=== PATIENT | female | born 2000 | race Caucasian/White ===

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

== ENCOUNTER 2020-03-07 14:42 | Emergency (ER) | payer OTHER, SELFPAY ==
[2020-03-07 11:22] VITALS: BMI 31.2
[2020-03-07 14:54] VITALS: BP 138/73; PULSE 87; RESP 16; TEMP 37; O2SAT 100; BMI 29.7
--- NOTE | 2020-03-07 15:06 | DI.RAD.S_ITS ---
PROCEDURE: XR CHEST 2V INDICATIONS: shortness of breath TECHNIQUE: 2 views of the chest were acquired. COMPARISON: [facility], , CHEST 2 VIEW, 07/20/2014, 12:05. FINDINGS: Surgical changes and devices: None. Lungs and pleura: Lungs are clear. No pleural effusions or pneumothorax. Mediastinum: Mediastinal contours are normal. Heart size is normal. Bones and chest wall: No suspicious bony abnormalities. Soft tissues appear unremarkable. IMPRESSION: No acute disease Dictated by: Lj Lamas M.D. on 03/07/2020 at 15:23 Approved by: Lj Lamas M.D. on 03/07/2020 at 15:24
[2020-03-07 16:57] VITALS: TEMP 37.2
[2020-03-07] MEDS: diphenhydrAMINE 50 MG/ML VIAL 25 MG IV (19:16)
[2020-03-07] MEDS: SODIUM CHLORIDE 0.9% 1,000 ML 1000 ML IV (19:17)
[2020-03-07] MEDS: KETOROLAC 60 MG/2 ML VIAL 30 MG IV (19:17)
[2020-03-07] MEDS: METOCLOPRAMIDE 10 MG/2 ML INJ IV (19:17)
[2020-03-07 20:32] VITALS: BP 136/79; PULSE 80; RESP 18; O2SAT 98
--- NOTE | 2020-03-07 20:36 | ED_ITS ---
HPI - URI/Sore Throat <MARYANA Desir - Last Filed: 03/07/20 20:52> General Chief Complaint: Upper Respiratory Symptoms Stated Complaint: nauseous, chest pain, body aches, chills, headache Time Seen by Provider: 03/07/20 16:55 Source: patient Mode of arrival: Ambulatory Limitations: no limitations History of Present Illness HPI Narrative: The patient is a 20-year-old female nonsmoker with history of depression and appendectomy who presents with boyfriend for multiple complaints. This includes some body aches, chills, headache with sudden onset today. She also feels like she has sore throat, left earache, nausea with no vomiting at this point time. She has been vomiting in the middle of the night the past few nights so she is tapering off her antidepressant. She felt short of breath, used her inhaler and felt relief. She also complains of sinus congestion, sinus headaches. She has taken Tylenol for her headache, has not taken anything else. She denies any abdominal pain. She denies any dysuria urgency or frequency. Denies possibility of , states she took a negative test last week. The sinus pressure radiates to her jaw and her teeth, hurts worse when she leans forward. She did notice a temperature of 100? yesterday. Related Data Previous Rx's Medication Instructions Recorded albuterol sulfate 90 mcg/actuation 2 puff INHALATION Q4-6H PRN #18 12/20/18 aerosol inhaler gram bupropion HCl 75 mg tablet 75 mg PO BID #90 tab 02/28/20 escitalopram oxalate 20 mg tablet 20 mg PO DAILY #90 tab 02/28/20 escitalopram oxalate 5 mg tablet 5 mg PO DAILY #90 tab 02/28/20 hydroxyzine pamoate 25 mg capsule 25 mg PO BID PRN #60 cap 02/28/20 levonorgestrel-ethinyl estradiol 1 tab PO DAILY #84 tab 02/28/20 0.1 mg-20 mcg tablet Allergies Allergy/AdvReac Type Severity Reaction Status Date / Time amoxicillin Allergy Severe DRESS Verified 02/28/20 14:53 syndrome Penicillins Allergy Severe Rash Verified 02/28/20 14:53 Review of Systems <MARYANA Desir - Last Filed: 03/07/20 20:52> Review of Systems Narrative: GENERAL: See HPI HEENT: See HPI RESPIRATORY: See HPI CARDIOVASCULAR: See HPI GASTROINTESTINAL: See HPI : Denies dysuria, frequency, incontinence, hematuria, urinary retention. MUSCULOSKELETAL: denies weakness, joint pain, or bony pain SKIN: Denies rash, skin lesions, or other NEUROLOGIC: Denies weakness, headache, numbness, change in speech, confusion, seizures, incoordination. PSYCHIATRIC: No concerning psychosocial issues. 12 point review of systems is negative except for those stated above Patient History <MARYANA Desir - Last Filed: 03/07/20 20:52> Medical History Anxiety (Acute 2014) Depression (Acute 2014) DRESS syndrome (Acute 11/2018) Irritable bowel syndrome (Acute) Menses painful (Acute 2017) Oral contraception initial prescription (Acute 02/2020) Social History household members: family Smoking Status: Never smoker alcohol intake: current Smoking Status: Never smoker alcohol intake frequency: 0-2 drinks per day Substance Use Type: does not use Exam <MARYANA Desir - Last Filed: 03/07/20 20:52> Narrative Exam Narrative: GENERAL: This is a well-nourished, well-developed patient, in no acute distress HEAD: Atraumatic. Normocephalic. No temporal or scalp tenderness. EYES: Pupils equal round and reactive. Extraocular motions intact. No scleral icterus. No injection or drainage. ENT: Nose without bleeding, purulent drainage or septal hematoma. Throat without erythema, tonsillar hypertrophy or exudate. Uvula midline. Airway patent. Bilateral TMs pearly taylor. NECK: Trachea midline. No JVD or lymphadenopathy. Supple, nontender, no meningeal signs. CARDIOVASCULAR: Regular rate and rhythm RESPIRATORY: Clear to auscultation. Breath sounds equal bilaterally. No wheezes, rales, or rhonchi. No cough. No increased respiratory effort. No accessory muscle use. GASTROINTESTINAL: Abdomen soft, non-tender, nondistended. No hepato- splenomegaly, or palpable masses. No guarding. Normoactive bowel sounds all 4 quadrants. EXTREMITIES: No clubbing, cyanosis, or edema. No joint tenderness, effusion, or edema noted. BACK: Nontender without deformity or crepitance. No flank tenderness. NEURO: AOx3. SKIN: No rash or erythema on visible skin Initial Vital Signs Initial Vital Signs: Vital Signs Temperature 98.6 F 03/07/20 14:54 Pulse Rate 87 03/07/20 14:54 Respiratory Rate 16 03/07/20 14:54 Blood Pressure 138/73 03/07/20 14:54 Pulse Oximetry 100 03/07/20 14:54 <Vinayak Gautam DO - Last Filed: 03/08/20 01:47> Initial Vital Signs Initial Vital Signs: Vital Signs Temperature 98.6 F 03/07/20 14:54 Pulse Rate 87 03/07/20 14:54 Respiratory Rate 16 03/07/20 14:54 Blood Pressure 138/73 03/07/20 14:54 Pulse Oximetry 100 03/07/20 14:54 Scores <MARYANA Desir - Last Filed: 03/07/20 20:52> GCS Gina coma scale eye opening: Spontaneous Gina coma scale verbal response: Orientated [place] coma scale motor response: Obey commands Gina coma scale total score: 15 Course <MARYANA Desir - Last Filed: 03/07/20 20:52> Orders Ordered: Discontinued Medications Diphenhydramine HCl (Benadryl) 25 mg IV NOW ONE Stop: 03/07/20 18:09 Last Admin: 03/07/20 19:16 Dose: 25 mg Documented by: ROWDY Sodium Chloride (Normal Saline 0.9%) 1,000 mls @ 1,000 mls/hr IV BOLUS ONE Stop: 03/07/20 19:07 Last Admin: 03/07/20 19:17 Dose: 1,000 mls/hr Documented by: ROWDY Ketorolac Tromethamine (Toradol) 30 mg IV NOW ONE Stop: 03/07/20 18:09 Last Admin: 03/07/20 19:17 Dose: 30 mg Documented by: ROWDY Metoclopramide HCl (Reglan) 10 mg IV NOW ONE Stop: 03/07/20 18:09 Last Admin: 03/07/20 19:17 Dose: 10 mg Documented by: ROWDY Vital Signs Vital signs: Vital Signs - 8 hr 03/07/20 20:32 Pulse Rate 80 Respiratory Rate 18 Blood Pressure 136/79 Pulse Oximetry 98 <Vinayak Gautam DO - Last Filed: 03/08/20 01:47> Orders Ordered: Discontinued Medications Diphenhydramine HCl (Benadryl) 25 mg IV NOW ONE Stop: 03/07/20 18:09 Last Admin: 03/07/20 19:16 Dose: 25 mg Documented by: ROWDY Sodium Chloride (Normal Saline 0.9%) 1,000 mls @ 1,000 mls/hr IV BOLUS ONE Stop: 03/07/20 19:07 Last Admin: 03/07/20 19:17 Dose: 1,000 mls/hr Documented by: ROWDY Ketorolac Tromethamine (Toradol) 30 mg IV NOW ONE Stop: 03/07/20 18:09 Last Admin: 03/07/20 19:17 Dose: 30 mg Documented by: ROWDY Metoclopramide HCl (Reglan) 10 mg IV NOW ONE Stop: 03/07/20 18:09 Last Admin: 03/07/20 19:17 Dose: 10 mg Documented by: ROWDY Vital Signs Vital signs: Vital Signs - 8 hr 03/07/20 20:32 Pulse Rate 80 Respiratory Rate 18 Blood Pressure 136/79 Pulse Oximetry 98 MDM - URI/Sore Throat <MARYANA Desir - Last Filed: 03/07/20 20:52> Lab Data Labs: Point of Care Testing Test Results Negative Rapid Strep A Negative Urine Dip Bedside Urine Glucose Negative Bedside Urine Bilirubin - Negative Bedside Urine Ketone - Negative Urine Specific [place] 1.010 Bedside Urine Occult Blood - Negative Bedside Urine pH 7.0 Bedside Urine Protein - Negative Bedside Urine Urobilinogen - Negative Bedside Urine Nitrite - Negative Bedside Urine Leukocytes - Negative Esterase Imaging Data Chest x-ray: Radiologist's Impression: [address] [place] [id number] XRay Report Signed Patient: Mary Quintero [facility]#: [id number] : 2000Acct:[id number] Age/Sex: 20 / FDate of Service: 03/07/20 Loc: ED Accession Number: [id number] Procedure: XR chest 2V Ordering Provider: Mary Bowie PROCEDURE: XR CHEST 2V INDICATIONS: shortness of breath TECHNIQUE: 2 views of the chest were acquired. COMPARISON: [facility], , CHEST 2 VIEW, 07/20/2014, 12:05. FINDINGS: Surgical changes and devices: None. Lungs and pleura: Lungs are clear. No pleural effusions or pneumothorax. Mediastinum: Mediastinal contours are normal. Heart size is normal. Bones and chest wall: No suspicious bony abnormalities. Soft tissues appear unremarkable. IMPRESSION: No acute disease Dictated by: Lj Lamas M.D. on 03/07/2020 at 15:23 Approved by: Lj Lamas M.D. on 03/07/2020 at 15:24 MDM Narrative Medical decision making narrative: The patient is a 20-year-old female who presents with multiple complaints including sudden onset shortness of breath and improved with her inhaler, sore throat earache headache and nausea. Her chest x-ray has no acute findings, her rapid strep is negative, we did swab her for coronavirus. I discussed that we will call her with the results come in. regarding her other symptoms, she has no indications of bacterial infection at this point time. She feels improved after the above-stated therapies for her headache, we did discuss at length use of Sudafed, Flonase, Kartik med sinus rinse for her sinus pressure as she would like to hold off on antibiotics at this point time. Encouraged follow-up with primary care provider in the next few days. Discussed coming back to the emergency department for any acute concerns. Patient has no questions or concerns upon discharge and states understanding of return precautions as well as follow-up care. She has been hemodynamically stable and oxygenating well throughout the emergency department stay. <Vinayak Gautam DO - Last Filed: 03/08/20 01:47> Lab Data Labs: Point of Care Testing Test Results Negative Rapid Strep A Negative Urine Dip Bedside Urine Glucose Negative Bedside Urine Bilirubin - Negative Bedside Urine Ketone - Negative Urine Specific [place] 1.010 Bedside Urine Occult Blood - Negative Bedside Urine pH 7.0 Bedside Urine Protein - Negative Bedside Urine Urobilinogen - Negative Bedside Urine Nitrite - Negative Bedside Urine Leukocytes - Negative Esterase Discharge Plan Departure Patient Disposition: Home Clinical Impression: Nausea Headache Qualifiers: Headache type: other headache syndrome Qualified Code(s): G44.89 - Other headache syndrome Sinusitis Qualifiers: Sinusitis location: unspecified location Chronicity: acute Recurrence: non- recurrent Qualified Code(s): J01.90 - Acute sinusitis, unspecified Discharge Date/Time: 03/07/20 20:33 Instructions: DI for Sinusitis, DI for Sinus Headache, DI for Nausea -- Adult, DI for Headache, DI for COVID-19 (Suspected or Confirmed ) Activity Restrictions/Additional Instructions: Thank you for trusting us with your care today. I am sorry you are feeling poorly hope that you feel better soon. I sent a prescription of Zofran for nausea to [facility]. As discussed, we will call you if the coronavirus test are positive or negative. They will result in approximately 24-48 hours. Please follow-up with primary care provider in the next few days. Regarding her sinus symptoms, I encouraged the use of [id number] Flonase, Sudafed and Kartik med sinus rinse or Neti pot Please come back to the emergency department for any acute concerns Prescriptions: No Action albuterol sulfate 90 mcg/actuation HFA aerosol inhaler 2 puff INHALATION Q4-6H PRN (Reason: shortness of breath or wheezing) Qty: 18 RF: 3 hydroxyzine pamoate 25 mg capsule 25 mg PO BID PRN (Reason: anxiety) Qty: 60 RF: 0 escitalopram oxalate 20 mg tablet 20 mg PO DAILY Qty: 90 RF: 2 escitalopram oxalate 5 mg tablet 5 mg PO DAILY Qty: 90 RF: 0 bupropion HCl 75 mg tablet 75 mg PO BID Qty: 90 RF: 0 levonorgestrel-ethinyl estrad 0.1-20 mg-mcg tablet 1 tab PO DAILY Qty: 84 RF: 2 Referrals: Dejah Luz ARNP [Primary Care Provider] - Stand Alone Forms: Work Release Note <Vinayak Gautam DO - Last Filed: 03/08/20 01:47> Cosign ED Attending Cosignature Attestation: I was immediately available in the department for consultation. This documentation has been reviewed and I agree with assessment and plan. Supervised by Vinayak Gautam DO
[2020-03-10 09:08] LABS: COVID19 Sendout Not Detected (Not Detected)
== END 2020-03-07 20:33 | disposition home or self-care (01) ==
PROVIDERS: Emergency Provider Nurse Practitioner Family; PCP Nurse Practitioner Family
DX: J01.90 Acute sinusitis, unspecified (principal); G44.89 Other headache syndrome; R11.2 Nausea with vomiting, unspecified; Z03.818 Encounter for observation for suspected exposure to other biological agents ruled out; J02.9 Acute pharyngitis, unspecified; R50.9 Fever, unspecified; R06.02 Shortness of breath
CPT/HCPCS: 36415; 71046; 81003; 81025; 87635; 87880; 96374; 96375; 99284; J1200; J1885; J2765

== ENCOUNTER 2020-04-24 18:31 | Emergency (ER) | payer OTHER, SELFPAY ==
[2020-04-24 18:48] VITALS: BP 151/87; PULSE 85; RESP 19; TEMP 37.3; O2SAT 96; BMI 29.7
[2020-04-24 19:02] LABS: Bacteria Urine None Seen; WBC Urine None Seen (0-5/HPF)
--- NOTE | 2020-04-24 19:04 | ED_ITS ---
HPI - Abdominal Pain <Ness Yan PA-C - Last Filed: 04/24/20 22:31> General Chief Complaint: Abdominal Pain Stated Complaint: severe abdominal pain, nausea, late on period Time Seen by Provider: 04/24/20 19:04 Source: patient Mode of arrival: Ambulatory Limitations: no limitations History of Present Illness HPI narrative: This is an un comfortable appearing 20-year-old woman with a history of mixed IBS, chronic intermittent abdominal pain, appendicitis, postoperative hemorrhage, asthma presents to the emergency department complaining of intense abdominal pain that began last night shortly after her period began. She describes the pain as a constant intense dull ache but occas ionally it is much more intense and somewhat sharp. She says she has been having pains ?all over in different places in my belly? but primarily she notes it is in the lower left also feels in the lower right and up high near her epigastrium. She has been having severe nausea since this started without vomiting. She states she normally has painful cramps with her menses but they are usually affecting her low back and not as intense. She also says she has been bleeding more heavily than normal. Stating that she is going through 3 or 4 tampons today she says these are regular. She notes that she has seen red blood and also dark clots that appear to be up to the size of a dime. She started a new control in the middle of February, she had a strategic marketing specialist. For her in early March stating that she had some spotting and then had a period for about 3 days and then had some spotting before it stopped. Her current period was 4 days late when it started yesterday, she says that she is normally very regular, but has historically had fairly heavy periods which is 1 of the reasons she started control. She has been having normal bowel movements has not had any dysuria or flank pain, she endorses a low-grade fever 99.6 yesterday evening. She has been able to eat and drink. She notes she also has some left shoulder pain but states she has chronic left shoulder pains that have been going on for many months and they are worse with movement of her arm. She denies any concern for sexually transmitted infection, denies any foul smelling or green or yellow vaginal discharge, denies chest pain, chills, flank pain, body aches or any other symptoms. complaint: abdominal pain (pelvic) Onset (ago): day(s) (1) Pain Consistency: constant and intermittent Location: LLQ, RLQ and epigastric Severity: severe Severity scale (1-10): 6 Quality: sharp and dull Radiation: none Migration to: no migration Relieving factors: nothing Exacerbating factors: nothing Context: other (IBS, chronic abdominal pains) Associated symptoms: nausea (Severe nausea since this began) and other (Menses started yesterday, heavier menses than usual) Related Data Date of Last Menstrual Period: 04/23/20 Hx Last Menstrual Period: Currently on menstrual. Last period 5 weeks ago Patient : No Previous Rx's Medication Instructions Recorded albuterol sulfate 90 mcg/actuation 2 puff INHALATION Q4-6H PRN #18 12/20/18 aerosol inhaler gram hydroxyzine pamoate 25 mg capsule 25 mg PO BID PRN #60 cap 02/28/20 levonorgestrel-ethinyl estradiol 1 tab PO DAILY #84 tab 02/28/20 0.1 mg-20 mcg tablet bupropion HCl 75 mg tablet 75 mg PO BID #90 tab 04/12/20 ondansetron HCl [Zofran] 4 mg PO Q6H #14 tab 04/24/20 Allergies Allergy/AdvReac Type Severity Reaction Status Date / Time amoxicillin Allergy Severe DRESS Verified 04/24/20 18:55 syndrome Penicillins Allergy Severe Rash Verified 04/24/20 18:55 Review of Systems <Ness Yan PA-C - Last Filed: 04/24/20 22:31> Review of Systems Narrative: GENERAL: Denies chills, fatigue, malaise, positive for low-grade fever yesterday, negative for sweats. HEENT: Denies sinus pain, ear pain, sore throat, difficulty swallowing, endorses occasional dizziness which is consistent with her normal periods. RESPIRATORY: Denies dyspnea, cough, wheezing, hemoptysis, sputum. CARDIOVASCULAR: Denies chest pain, palpitations, orthopnea, edema, GASTROINTESTINAL: Positive for nausea, denies vomiting, positive for epigastric and right and left lower quadrant pelvic/abdominal pain, positive for alternating diarrhea, constipation 2nd to IBS, negative for melena or hematochezia. : Positive for current slightly heavy menstrual bleeding, Denies dysuria, frequency, incontinence, hematuria, urinary retention. MUSCULOSKELETAL: denies weakness, joint pain, or bony pain SKIN: Denies rash, skin lesions, or other NEUROLOGIC: Denies weakness, headache, numbness, change in speech, confusion, seizures, incoordination. PSYCHIATRIC: No concerning psychosocial issues. 12 point review of systems is negative except for those stated above ROS Unobtainable: All systems reviewed & are unremarkable except as noted in HPI and below Patient History <Ness Yan PA-C - Last Filed: 04/24/20 22:31> Medical History Anxiety (Acute 2014) Depression (Acute 2014) DRESS syndrome (Acute 11/2018) Irritable bowel syndrome (Acute) Menses painful (Acute 2017) Oral contraception initial prescription (Acute 02/2020) Social History household members: family Smoking Status: Never smoker alcohol intake: current Smoking Status: Never smoker alcohol intake frequency: 0-2 drinks per day Substance Use Type: does not use Exam <Ness Yan PA-C - Last Filed: 04/24/20 22:31> Narrative Exam Narrative: GENERAL: 20 year old patient appears stated age. Well-nourished, well-developed patient, in mild distress, she is not toxic or ill appearing. HEAD: Atraumatic. Normocephalic. EYES: Pupils equal round and reactive. Extraocular motions intact. No scleral icterus. No injection or drainage. ENT: Nose without bleeding, purulent drainage. Throat without erythema, tonsillar hypertrophy or exudate. Airway patent. NECK: Trachea midline. Non tender CARDIOVASCULAR: Regular rate and rhythm without murmurs, gallops, or rubs. RESPIRATORY: Clear to auscultation. Breath sounds equal bilaterally. No wheezes, rales, or rhonchi. GASTROINTESTINAL: Abdomen soft, there is tenderness over the right and left lower quadrants, most notable on the left, there is epigastric and right upper quadrant tenderness, positive Melendez sign, negative Rovsing, there is slight periumbilical and moderate suprapubic tenderness, nondistended. EXTREMITIES: No edema or joint tenderness. BACK: Nontender without deformity or crepitance. No flank tenderness. NEURO: AOx3. SKIN: No rash or erythema of visible areas Initial Vital Signs Initial Vital Signs: Vital Signs Temperature 99.2 F 04/24/20 18:48 Pulse Rate 85 04/24/20 18:48 Respiratory Rate 19 04/24/20 18:48 Blood Pressure 151/87 H 04/24/20 18:48 Pulse Oximetry 96 04/24/20 18:48 <Temitope Mcfarland MD - Last Filed: 04/25/20 05:11> Initial Vital Signs Initial Vital Signs: Vital Signs Temperature 99.2 F 04/24/20 18:48 Pulse Rate 85 04/24/20 18:48 Respiratory Rate 04/24/20 18:48 Blood Pressure 151/87 H 04/24/20 18:48 Pulse Oximetry 96 04/24/20 18:48 Scores <Ness Yan PA-C - Last Filed: 04/24/20 22:31> ABCD2 Citation: Lancet. 2006Sep 11;369(9896):283-92. Validation and refinement of scores to predict very early stroke risk after transient ischaemic attack. Shahzad SC1, Sam PM, Rosalba MN, Mckay MF, Kaylyn JS, Leyva AL, Nagi S. GCS [place] coma scale eye opening: Spontaneous Gina coma scale verbal response: Orientated [place] coma scale motor response: Obey commands [place] coma scale total score: 15 Course <Ness Yan PA-C - Last Filed: 04/24/20 22:31> Orders Ordered: Discontinued Medications Acetaminophen (Tylenol) 975 mg PO NOW ONE Stop: 04/24/20 19:06 Last Admin: 04/24/20 19:22 Dose: 975 mg Documented by: MMCFARL Hydromorphone HCl (Dilaudid) 0.5 mg IV NOW ONE Stop: 04/24/20 19:57 Last Admin: 04/24/20 20:10 Dose: 0.5 mg Documented by: MMCFARL Ondansetron HCl (Zofran) 4 mg IV NOW ONE Stop: 04/24/20 19:06 Last Admin: 04/24/20 19:22 Dose: 4 mg Documented by: MMCFARL Ondansetron HCl (Zofran) 4 mg IV NOW ONE Stop: 04/24/20 21:08 Last Admin: 04/24/20 21:35 Dose: 4 mg Documented by: JESUS Vital Signs Vital signs: Vital Signs - 8 hr 04/24/20 21:40 Temperature 98.9 F Pulse Rate 70 Blood Pressure 128/69 <Temitope Mcfarland MD - Last Filed: 04/25/20 05:11> Orders Ordered: Discontinued Medications Acetaminophen (Tylenol) 975 mg PO NOW ONE Stop: 04/24/20 19:06 Last Admin: 04/24/20 19:22 Dose: 975 mg Documented by: VALERYL Hydromorphone HCl (Dilaudid) 0.5 mg IV NOW ONE Stop: 04/24/20 19:57 Last Admin: 04/24/20 20:10 Dose: 0.5 mg Documented by: ARIELLEFARL Ondansetron HCl (Zofran) 4 mg IV NOW ONE Stop: 04/24/20 19:06 Last Admin: 04/24/20 19:22 Dose: 4 mg Documented by: ARIELLEFARL Ondansetron HCl (Zofran) 4 mg IV NOW ONE Stop: 04/24/20 21:08 Last Admin: 04/24/20 21:35 Dose: 4 mg Documented by: JESUS Vital Signs Vital signs: Vital Signs - 8 hr 04/24/20 21:40 Temperature 98.9 F Pulse Rate 70 Blood Pressure 128/69 MDM - Abdominal Pain <Ness Yan PA-C - Last Filed: 04/24/20 22:31> Differential Diagnosis Differential diagnosis: Likely abdominal pain, endometriosis, small bowel obstruction and other (Adhesion, ovarian cyst, ovarian torsion, diverticulitis, cholecystitis) Medical Records Attestation: I reviewed the patient's medical records. Lab Data Attestation: I reviewed the patient's lab results. Result diagrams: 04/24/20 19:20 04/24/20 19:20 Labs: Lab Results 04/24/20 04/24/20 04/24/20 Range/Units 18:44 19:20 19:20 WBC 9.4 (4.5-11.0) X10^3/uL RBC 4.43 (4.0-5.2) X10^6/uL Hgb 13.0 (12.0-16.0) g/dL Hct 38.6 (36-46) % MCV 87.1 (80-100) fL MCH 29.3 (26-34) PG MCHC 33.7 (30-36) % RDW 12.8 (11.6-14.8) % Plt Count 356 (150-400) X10^3/uL Neut % (Auto) 64.4 (50-75) % Lymph % (Auto) 26.6 (25-40) % [place] % (Auto) 8.2 (3-14) % Eos % (Auto) 0.6 L (2-4) % Baso % (Auto) 0.2 (0-2) % Neut # (Auto) 6000 (0902-3024) /uL Lymph # (Auto) 2500 (0720-3233) /uL [place] # (Auto) 800 (0-900) /uL Eos # (Auto) 100 (0-450) /uL Baso # (Auto) 0 (0-100) /uL Sodium 139 (137-145) mmol/L Potassium 3.8 (3.4-5.1) mmol/L Chloride 105 (98-107) mmol/L Carbon Dioxide 25 (22-32) mmol/L BUN 7 (7-17) mg/dL Creatinine 0.80 (0.52-1.04) mg/dL Estimated GFR > 60.0 (>60) mL/min BUN/Creatinine Ratio 8.8 (6-22) Glucose 87 (70-100) mg/dL Calcium 9.8 (8.4-10.2) mg/dL Total Bilirubin 0.4 (0.2-1.3) mg/dL AST 24 (14-36) IU/L ALT 19 (<35) IU/L Alkaline Phosphatase 57 (38-126) U/L Total Protein 8.6 H (6.3-8.2) g/dL Albumin 4.9 (3.5-5.0) g/dL Globulin 3.7 (1.7-4.1) g/dL Albumin/Globulin Ratio 1.3 (1.0-2.8) Lipase (23-300) U/L Urine RBC 10-30/hpf H (0-5/HPF) Urine WBC None seen (0-5/HPF) Ur Squamous Epith Cells 5-10 /hpf H (0-5/HPF) Urine Bacteria None seen (None) Urine Mucus 1+ H (Negative) Ur Culture Indicated? Cult not indicated Blood Type Antibody Screen 04/24/20 04/24/20 Range/Units 19:20 19:20 WBC (4.5-11.0) X10^3/uL RBC (4.0-5.2) X10^6/uL Hgb (12.0-16.0) g/dL Hct (36-46) % MCV (80-100) fL MCH (26-34) PG MCHC (30-36) % RDW (11.6-14.8) % Plt Count (150-400) X10^3/uL Neut % (Auto) (50-75) % Lymph % (Auto) (25-40) % [place] % (Auto) (3-14) % Eos % (Auto) (2-4) % Baso % (Auto) (0-2) % Neut # (Auto) (9686-7484) /uL Lymph # (Auto) (1485-8909) /uL [place] # (Auto) (0-900) /uL Eos # (Auto) (0-450) /uL Baso # (Auto) (0-100) /uL Sodium (137-145) mmol/L Potassium (3.4-5.1) mmol/L Chloride (98-107) mmol/L Carbon Dioxide (22-32) mmol/L BUN (7-17) mg/dL Creatinine (0.52-1.04) mg/dL Estimated GFR (>60) mL/min BUN/Creatinine Ratio (6-22) Glucose (70-100) mg/dL Calcium (8.4-10.2) mg/dL Total Bilirubin (0.2-1.3) mg/dL AST (14-36) IU/L ALT (<35) IU/L Alkaline Phosphatase (38-126) U/L Total Protein (6.3-8.2) g/dL Albumin (3.5-5.0) g/dL Globulin (1.7-4.1) g/dL Albumin/Globulin Ratio (1.0-2.8) Lipase 48 (23-300) U/L Urine RBC (0-5/HPF) Urine WBC (0-5/HPF) Ur Squamous Epith Cells (0-5/HPF) Urine Bacteria (None) Urine Mucus (Negative) Ur Culture Indicated? Blood Type A Negative Antibody Screen Negative Point of care testing: Point of Care Testing Test Results Negative Urine Dip Bedside Urine Glucose Negative Bedside Urine Bilirubin - Negative Bedside Urine Ketone + 15 Urine Specific Pollock 1.030 Bedside Urine Occult Blood +++ Bedside Urine pH 6.0 Bedside Urine Protein +/- 15 Bedside Urine Urobilinogen - Negative Bedside Urine Nitrite - Negative Bedside Urine Leukocytes - Negative Esterase Imaging Data US - abdomen: Attestation: I personally reviewed and interpreted this imaging study as follows: Radiologist's Impression: [address] [id number] Ultrasound Report Signed Patient: Mary Quintero AMR#: [id number] : 2000Acct:[id number] Age/Sex: 20 / FDate of Service: 04/24/20 Loc: ED Accession Number: [id number] Procedure: US abdomen limited Ordering Provider: Ness Yan P.A-C PROCEDURE: US ABDOMEN LIMITED INDICATIONS: RUQ PAIN TECHNIQUE: Real-time scanning was performed of the abdominal and retroperitoneal organs, with image documentation. COMPARISON: None. FINDINGS: Liver: Liver is normal in size and homogeneous in echotexture. Gallbladder: Gallbladder is normal in sonographic appearance without gallstones, gallbladder wall thickening, pericholecystic fluid, or abnormal sonographic Melendez's. Biliary ducts: Intrahepatic bile ducts are non-dilated. Extrahepatic bile duct caliber measures 4 mm. Normal is 6-7 mm or less in diameter, or 10 mm or less post-cholecystectomy. Miscellaneous: No free abdominal fluid. IMPRESSION: Normal sonographic evaluation of the liver and gallbladder. Dictated by: Lucho Woo M.D. on 04/24/2020 at 21:02 Approved by: Lucho Woo M.D. on 04/24/2020 at 21:04 US - WOOD MACHINIST: Attestation: I personally reviewed and interpreted this imaging study as follows: Radiologist's Impression: [address] [id number] Ultrasound Report Signed Patient: Mary Quintero AMR#: [id number] : 2000Acct:[id number] Age/Sex: 20 / FDate of Service: 04/24/20 Loc: ED Accession Number: [id number] Procedure: US pelvic complete Ordering Provider: Ness Yan P.A-C PROCEDURE: US PELVIC COMPLETE INDICATIONS: Severe intermittent LLQ pain TECHNIQUE: Real-time scanning was performed of the pelvic organs, with image documentation. Additional endovaginal scanning was necessary due to incomplete visualization of the adnexal and endometrial structures by transabdominal scanning. COMPARISON: [facility], , US PELVIC COMPLETE, 03/27/2019, 20:54. FINDINGS: Transabdominal scanning: Limited scanning through the kidneys shows no hydron ephrosis. No pathologic free abdominal or pelvic fluid. Endovaginal scanning: Uterus: Uterus is normal in size at 7.8 x 3.8 x 5.6 cm. The endometrium measures 6 mm in combined thickness. Ovaries: Right ovary measures 2.9 x 2.8 x 2.2 cm. There is a complex appearing cyst within the right ovary measuring 1.7 x 1.7 x 1.3 cm. Left ovary is normal in appearance measuring 3.0 x 1.6 x 1.4 cm. No suspicious left-sided ovarian/adnexal mass lesions. Vascular waveforms are present in the bilateral ovaries. IMPRESSION: 1. Pelvic ultrasound without acute sonographic abnormalities. 2. Complex 1.7 cm right ovarian cyst. Follow-up pelvic ultrasound in 6-12 weeks is recommended to document stability versus resolution. Dictated by: Lucho Woo M.D. on 04/24/2020 at 21:04 Approved by: Lucho Woo M.D. on 04/24/2020 at 21:08 [facility] Narrative Medical decision making narrative: This is an uncomfortable appearing 20-year-old presenting with nausea and pelvic and abdominal pain with pelvic pain significant since yesterday evening when her period began. Abdominal exam revealed significant right and left lower quadrant/pelvic tenderness in the area of the adnexa she also had significant tenderness in the right upper quadrant. Labs were unremarkable, pelvic ultrasound and gallbladder ultrasound were performed, abdominal ultrasound was unremarkable, pelvic ultrasound revealed a complex ovarian cyst on the right, 1.7 x 1.7 x 1.3 cm pelvic ultrasound otherwise unremarkable, no evidence of torsion, no free fluid. Pelvic exam was not performed as patient's bleeding was not severe, labs were unremarkable and she had no concern for STI. Patient's presentation was concerning with multiple areas of abdominal pain, cholecystitis or gallbladder etiology is considered and evaluated for, however her presenting complaint today was largely her new lower left and lower right-sided pelvic pain, concern for ovarian torsion given her new and acute intermittently worse pelvic pain. She had notably been evaluated for abdominal pain and nausea multiple times in the last few months with multiple CT scans per patient. She did have laparoscopic surgery and open surgery earlier this spring, thus adhesions and obstruction were considered, however with normal bowel movements, ability to tolerate oral intake, unremarkable labs/vitals and an explanation for her pelvic/abdominal pain as well as normal right upper quadrant ultrasound, additional imaging was not obtained. Her nausea was largely controlled with Zofran in the emergency department, she was sent home with a prescription for this advised to take Tylenol and ibuprofen for pain, discussed emergency return precautions, she will return with any new or concerning symptoms or without resolution of her symptoms. I suspect she may have endometriosis, given the various locations for pain coinciding with the initiation of her. And the presence of a complex cyst in her ovary. Patient will follow-up with her PCP and or Dr. 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 Advised that she will need to discuss with them follow-up imaging. Emergency return precautions provided, all questions answered. <Temitope Mcfarland MD - Last Filed: 04/25/20 05:11> Lab Data Labs: Lab Results 04/24/20 04/24/20 04/24/20 Range/Units 18:44 19:20 19:20 WBC 9.4 (4.5-11.0) X10^3/uL RBC 4.43 (4.0-5.2) X10^6/uL Hgb 13.0 (12.0-16.0) g/dL Hct 38.6 (36-46) % MCV 87.1 (80-100) fL MCH 29.3 (26-34) PG MCHC 33.7 (30-36) % RDW 12.8 (11.6-14.8) % Plt Count 356 (150-400) X10^3/uL Neut % (Auto) 64.4 (50-75) % Lymph % (Auto) 26.6 (25-40) % [place] % (Auto) 8.2 (3-14) % Eos % (Auto) 0.6 L (2-4) % Baso % (Auto) 0.2 (0-2) % Neut # (Auto) 6000 (2180-3050) /uL Lymph # (Auto) 2500 (2823-6503) /uL [place] # (Auto) 800 (0-900) /uL Eos # (Auto) 100 (0-450) /uL Baso # (Auto) 0 (0-100) /uL Sodium 139 (137-145) mmol/L Potassium 3.8 (3.4-5.1) mmol/L Chloride 105 (98-107) mmol/L Carbon Dioxide 25 (22-32) mmol/L BUN 7 (7-17) mg/dL Creatinine 0.80 (0.52-1.04) mg/dL Estimated GFR > 60.0 (>60) mL/min BUN/Creatinine Ratio 8.8 (6-22) Glucose 87 (70-100) mg/dL Calcium 9.8 (8.4-10.2) mg/dL Total Bilirubin 0.4 (0.2-1.3) mg/dL AST 24 (14-36) IU/L ALT 19 (<35) IU/L Alkaline Phosphatase 57 (38-126) U/L Total Protein 8.6 H (6.3-8.2) g/dL Albumin 4.9 (3.5-5.0) g/dL Globulin 3.7 (1.7-4.1) g/dL Albumin/Globulin Ratio 1.3 (1.0-2.8) Lipase (23-300) U/L Urine RBC 10-30/hpf H (0-5/HPF) Urine WBC None seen (0-5/HPF) Ur Squamous Epith Cells 5-10 /hpf H (0-5/HPF) Urine Bacteria None seen (None) Urine Mucus 1+ H (Negative) Ur Culture Indicated? Cult not indicated Blood Type Antibody Screen 04/24/20 04/24/20 Range/Units 19:20 19:20 WBC (4.5-11.0) X10^3/uL RBC (4.0-5.2) X10^6/uL Hgb (12.0-16.0) g/dL Hct (36-46) % MCV (80-100) fL MCH (26-34) PG MCHC (30-36) % RDW (11.6-14.8) % Plt Count (150-400) X10^3/uL Neut % (Auto) (50-75) % Lymph % (Auto) (25-40) % [place] % (Auto) (3-14) % Eos % (Auto) (2-4) % Baso % (Auto) (0-2) % Neut # (Auto) (8114-2512) /uL Lymph # (Auto) (2543-6408) /uL [place] # (Auto) (0-900) /uL Eos # (Auto) (0-450) /uL Baso # (Auto) (0-100) /uL Sodium (137-145) mmol/L Potassium (3.4-5.1) mmol/L Chloride (98-107) mmol/L Carbon Dioxide (22-32) mmol/L BUN (7-17) mg/dL Creatinine (0.52-1.04) mg/dL Estimated GFR (>60) mL/min BUN/Creatinine Ratio (6-22) Glucose (70-100) mg/dL Calcium (8.4-10.2) mg/dL Total Bilirubin (0.2-1.3) mg/dL AST (14-36) IU/L ALT (<35) IU/L Alkaline Phosphatase (38-126) U/L Total Protein (6.3-8.2) g/dL Albumin (3.5-5.0) g/dL Globulin (1.7-4.1) g/dL Albumin/Globulin Ratio (1.0-2.8) Lipase 48 (23-300) U/L Urine RBC (0-5/HPF) Urine WBC (0-5/HPF) Ur Squamous Epith Cells (0-5/HPF) Urine Bacteria (None) Urine Mucus (Negative) Ur Culture Indicated? Blood Type A Negative Antibody Screen Negative Point of care testing: Point of Care Testing Test Results Negative Urine Dip Bedside Urine Glucose Negative Bedside Urine Bilirubin - Negative Bedside Urine Ketone + 15 Urine Specific Pollock 1.030 Bedside Urine Occult Blood +++ Bedside Urine pH 6.0 Bedside Urine Protein +/- 15 Bedside Urine Urobilinogen - Negative Bedside Urine Nitrite - Negative Bedside Urine Leukocytes - Negative Esterase Discharge Plan Departure Patient Disposition: Home Clinical Impression: Complex cyst of right ovary, Pelvic pain, Nausea Discharge Date/Time: 04/24/20 21:45 Instructions: DI for Ovarian Cyst, DI for Nausea -- Adult, Chronic Pelvic Pain- Female Activity Restrictions/Additional Instructions: Thank you for allowing us to be part of her care in the emergency department today. Your labs all looked good today, the preliminary results of the ultrasound also looked okay however you do have a complex cyst of your right ovary. This is likely the cause of your pelvic pain. You should follow-up with family medicine/market investigator so that you can discuss this with them and make a plan for whether you should have any additional imaging or procedures for evaluation. I am prescribing a antinausea medicine for you, and I recommend you use Tylenol and ibuprofen for pain. However please pay close attention to her symptoms if you do develop any increasing lightheadedness, fever, increasing pain severe bleeding or anything else of concern to you do not hesitate to seek medical care or return to the emergency department. There is no evidence of an emergent or life threatening illness at this time, but follow up with your doctor in 1-2 days is recommended nonetheless to continue to rule out serious underlying causes of your symptoms. Please call the office for an appointment. Please return to the Emergency Department for any worsening or persistent symptoms. Please take medications as directed. Prescriptions: New ondansetron HCl [Zofran] 4 mg tablet 4 mg PO Q6H Qty: 14 RF: 0 No Action bupropion HCl 75 mg tablet 75 mg PO BID Qty: 90 RF: 0 albuterol sulfate 90 mcg/actuation HFA aerosol inhaler 2 puff INHALATION Q4-6H PRN (Reason: shortness of breath or wheezing) Qty: 18 RF: 3 hydroxyzine pamoate 25 mg capsule 25 mg PO BID PRN (Reason: anxiety) Qty: 60 RF: 0 levonorgestrel-ethinyl estrad 0.1-20 mg-mcg tablet 1 tab PO DAILY Qty: 84 RF: 2 Referrals: Dejah Luz ARNP [Primary Care Provider] - <Temitope Mcfarland MD - Last Filed: 04/25/20 05:11> [facility] ED Attending Vero Attestation: I was immediately available in the department for consultation throughout this patient's visit. I agree with documentation as above. Temitope Mcfarland MD
[2020-04-24] MEDS: ONDANSETRON 4 MG/2 ML INJ IV ×2 (19:22→21:35)
[2020-04-24] MEDS: ACETAMINOPHEN 325 MG TABLET 975 MG PO (19:22)
[2020-04-24 19:31] LABS: Culture Indicated Urine Cult Not Indicated; Mucus Urine 1+ (Negative); RBC Urine 10-30/HPF (0-5/HPF); Squamous Epithelial Cell Urine 5-10 /HPF (0-5/HPF)
[2020-04-24 19:41] LABS: Add Manual Diff / Slide Review NO; Basophils Absolute Auto 0 /uL (0-100); Basophils Percent Auto 0.2 % (0-2); Eosinophils Absolute Auto 100 /uL (0-450); Eosinophils Percent Auto 0.6 % (2-4); Hematocrit 38.6 % (36-46); Lymphocytes Absolute Auto 2500 /uL (1100-4500); Lymphocytes Percent Auto 26.6 % (25-40); Mean Corpuscular HGB Conc 33.7 % (30-36); Mean Corpuscular Hemoglobin 29.3 PG (26-34); Mean Corpuscular Volume 87.1 fL (80-100); Monocytes Absolute Auto 800 /uL (0-900); Monocytes Percent Auto 8.2 % (3-14); Neutrophils Absolute Auto 6000 /uL (1500-7000); Neutrophils Percent Auto 64.4 % (50-75); Platelet Count 356 X10^3/uL (150-400); Red Blood Cell Count 4.43 X10^6/uL (4.0-5.2); Red Cell Distribution Width 12.8 % (11.6-14.8); White Blood Cell Count 9.4 X10^3/uL (4.5-11.0)
--- NOTE | 2020-04-24 19:43 | DI.US.S_ITS ---
PROCEDURE: US PELVIC COMPLETE INDICATIONS: Severe intermittent LLQ pain TECHNIQUE: Real-time scanning was performed of the pelvic organs, with image documentation. Additional endovaginal scanning was necessary due to incomplete visualization of the adnexal and endometrial structures by transabdominal scanning. COMPARISON: [facility], , US PELVIC COMPLETE, 03/27/2019, 20:54. FINDINGS: Transabdominal scanning: Limited scanning through the kidneys shows no hydronephrosis. No pathologic free abdominal or pelvic fluid. Endovaginal scanning: Uterus: Uterus is normal in size at 7.8 x 3.8 x 5.6 cm. The endometrium measures 6 mm in combined thickness. Ovaries: Right ovary measures 2.9 x 2.8 x 2.2 cm. There is a complex appearing cyst within the right ovary measuring 1.7 x 1.7 x 1.3 cm. Left ovary is normal in appearance measuring 3.0 x 1.6 x 1.4 cm. No suspicious left-sided ovarian/adnexal mass lesions. Vascular waveforms are present in the bilateral ovaries. IMPRESSION: 1. Pelvic ultrasound without acute sonographic abnormalities. 2. Complex 1.7 cm right ovarian cyst. Follow-up pelvic ultrasound in 6-12 weeks is recommended to document stability versus resolution. Dictated by: Lucho Woo M.D. on 04/24/2020 at 21:04 Approved by: Lucho Woo M.D. on 04/24/2020 at 21:08
[2020-04-24 19:54] LABS: Alanine Aminotransferase 19 IU/L (<35); Albumin 4.9 g/dL (3.5-5.0); Albumin Globulin Ratio 1.3 (1.0-2.8); Alkaline Phosphatase 57 U/L (38-126); Aspartate Aminotransferase 24 IU/L (14-36); BUN Creatinine Ratio 8.8 (6-22); Bilirubin Total 0.4 mg/dL (0.2-1.3); Blood Urea Nitrogen 7 mg/dL (7-17); Calcium 9.8 mg/dL (8.4-10.2); Carbon Dioxide 25 mmol/L (22-32); Chloride 105 mmol/L (98-107); Estimated Glomerular Filt Rate > 60.0 mL/min (>60); Globulin 3.7 g/dL (1.7-4.1); Glucose 87 mg/dL (70-100); HEMOLYSIS < 15 (0-50); Lipase 48 U/L (23-300); Potassium 3.8 mmol/L (3.4-5.1); Sodium 139 mmol/L (137-145); Total Protein 8.6 g/dL (6.3-8.2)
--- NOTE | 2020-04-24 19:54 | DI.US.S_ITS ---
PROCEDURE: US ABDOMEN LIMITED INDICATIONS: RUQ PAIN TECHNIQUE: Real-time scanning was performed of the abdominal and retroperitoneal organs, with image documentation. COMPARISON: None. FINDINGS: Liver: Liver is normal in size and homogeneous in echotexture. Gallbladder: Gallbladder is normal in sonographic appearance without gallstones, gallbladder wall thickening, pericholecystic fluid, or abnormal sonographic Melendez's. Biliary ducts: Intrahepatic bile ducts are non-dilated. Extrahepatic bile duct caliber measures 4 mm. Normal is 6-7 mm or less in diameter, or 10 mm or less post-cholecystectomy. Miscellaneous: No free abdominal fluid. IMPRESSION: Normal sonographic evaluation of the liver and gallbladder. Dictated by: Lucho Woo M.D. on 04/24/2020 at 21:02 Approved by: Lucho Woo M.D. on 04/24/2020 at 21:04
[2020-04-24] MEDS: HYDROMORPHONE 0.5 MG INJ IV (20:10)
[2020-04-24 20:41] VITALS: BP 132/70; PULSE 76; RESP 14; O2SAT 100
[2020-04-24 21:40] VITALS: BP 128/69; PULSE 70; TEMP 37.2
== END 2020-04-24 21:45 | disposition home or self-care (01) ==
PROVIDERS: Emergency Medicine; Emergency Provider Student in an Organized Health Care Education/Training Program; PCP Nurse Practitioner Family
DX: N83.201 Unspecified ovarian cyst, right side (principal); R10.2 Pelvic and perineal pain; R11.0 Nausea
CPT/HCPCS: 36415; 76705; 76830; 76856; 80053; 81003; 81015; 81025; 83690; 85025; 86850; 86900; 86901; 96374; 96375; 96376; 99284; J1170; J2405

== ENCOUNTER → 2020-05-28 13:54 | Outpatient (CLI) | payer OTHER, SELFPAY | PROVIDERS: PCP Nurse Practitioner Family; Referring Provider Internal Medicine; Visit Provider Internal Medicine | DX: Z23 Encounter for immunization (principal) | CPT/HCPCS: 90471; 90686 ==

== ENCOUNTER → 2020-05-31 16:31 | Outpatient (CLI) | payer OTHER, SELFPAY ==
[2020-05-31 17:34] LABS: Hematocrit 34.5 % (36-46); Hemoglobin 11.5 g/dL (12.0-16.0); Mean Corpuscular HGB Conc 33.2 % (30-36); Mean Corpuscular Hemoglobin 29.1 PG (26-34); Mean Corpuscular Volume 87.7 fL (80-100); Platelet Count 336 X10^3/uL (150-400); Red Blood Cell Count 3.94 X10^6/uL (4.0-5.2); Red Cell Distribution Width 13.2 % (11.6-14.8); White Blood Cell Count 8.4 X10^3/uL (4.5-11.0)
== END ==
PROVIDERS: PCP Nurse Practitioner Family; Referring Provider Nurse Practitioner Family; Visit Provider Nurse Practitioner Family
DX: D64.9 Anemia, unspecified (principal)
CPT/HCPCS: 36415; 85027

== ENCOUNTER → 2021-03-19 12:40 | Outpatient (CLI) | payer OTHER, SELFPAY ==
[2021-03-19 14:26] LABS: Hematocrit 36.4 % (36-46); Hemoglobin 12.1 g/dL (12.0-16.0); Mean Corpuscular HGB Conc 33.3 % (30-36); Mean Corpuscular Hemoglobin 30.1 PG (26-34); Mean Corpuscular Volume 90.3 fL (80-100); Platelet Count 314 X10^3/uL (150-400); Red Blood Cell Count 4.03 X10^6/uL (4.0-5.2); Red Cell Distribution Width 13.1 % (11.6-14.8); White Blood Cell Count 6.7 X10^3/uL (4.5-11.0)
[2021-03-19 14:51] LABS: Alanine Aminotransferase 19 IU/L (<35); Albumin 4.4 g/dL (3.5-5.0); Albumin Globulin Ratio 1.2 (1.0-2.8); Alkaline Phosphatase 49 U/L (38-126); Aspartate Aminotransferase 27 IU/L (14-36); Bilirubin Total 0.3 mg/dL (0.2-1.3); Blood Urea Nitrogen 9 mg/dL (7-17); Calcium 9.9 mg/dL (8.4-10.2); Carbon Dioxide 25 mmol/L (22-32); Chloride 107 mmol/L (98-107); Estimated Glomerular Filt Rate > 60.0 mL/min (>60); Globulin 3.6 g/dL (1.7-4.1); Glucose 86 mg/dL (70-100); HEMOLYSIS < 15 (0-50); Potassium 4.8 mmol/L (3.4-5.1); Sodium 139 mmol/L (137-145)
[2021-03-25 12:10] LABS: QuantiFERON Mitogen Value >10.00 IU/mL (.); QuantiFERON Nil Value 0.06 IU/mL (.); QuantiFERON TB Gold Plus Negative (Negative); QuantiFERON TB1 Ag Value 0.07 IU/mL (.); QuantiFERON TB2 Ag Value 0.06 IU/mL (.)
== END ==
PROVIDERS: PCP Nurse Practitioner Family; Referring Provider Nurse Practitioner Family; Visit Provider Nurse Practitioner Family
DX: Z01.89 Encounter for other specified special examinations (principal); F32.9 Major depressive disorder, single episode, unspecified
CPT/HCPCS: 36415; 80053; 85027; 86480

== ENCOUNTER 2021-08-19 17:05 | Emergency (ER) | payer OTHER, SELFPAY ==
[2021-08-19] VITALS (12 sets, daily range): BP systolic 128–153; BP diastolic 67–100; PULSE 99–140; RESP 16–27; TEMP 36.7–37.7; O2SAT 97–100; BMI 31.3
--- NOTE | 2021-08-19 17:14 | DI.RAD.S_ITS ---
PROCEDURE: XR CHEST 1V INDICATIONS: suspected sepsis COVID+ TECHNIQUE: One view of the chest was acquired. COMPARISON: [facility], CR, XR CHEST 2V, 03/07/2020, 15:00. FINDINGS: Surgical changes and devices: None. Lungs and pleura: Lungs are clear. No pleural effusions or pneumothorax. Mediastinum: Mediastinal contours appear normal. Heart size is normal. Bones and chest wall: No suspicious bony lesions. Overlying soft tissues appear unremarkable. IMPRESSION: No acute process. Dictated by: Munir Marshall M.D. on 08/19/2021 at 17:44 Approved by: Munir Marshall M.D. on 08/19/2021 at 17:44
[2021-08-19 17:31] LABS: COVID19 -Nasal RAPID POSITIVE (Negative)
[2021-08-19 17:55] LABS: Add Manual Diff / Slide Review NO; Basophils Absolute Auto 0 /uL (0-100); Basophils Percent Auto 0.2 % (0-2); Eosinophils Absolute Auto 0 /uL (0-450); Eosinophils Percent Auto 0.1 % (2-4); Hematocrit 38.9 % (36-46); Hemoglobin 13.3 g/dL (12.0-16.0); Lymphocytes Absolute Auto 800 /uL (1100-4500); Lymphocytes Percent Auto 8.7 % (25-40); Mean Corpuscular HGB Conc 34.1 % (30-36); Mean Corpuscular Hemoglobin 29.9 PG (26-34); Mean Corpuscular Volume 87.7 fL (80-100); Monocytes Absolute Auto 1000 /uL (0-900); Monocytes Percent Auto 11.1 % (3-14); Neutrophils Absolute Auto 7100 /uL (1500-7000); Neutrophils Percent Auto 79.9 % (50-75); Platelet Count 288 X10^3/uL (150-400); Red Blood Cell Count 4.44 X10^6/uL (4.0-5.2); Red Cell Distribution Width 12.8 % (11.6-14.8); White Blood Cell Count 8.8 X10^3/uL (4.5-11.0)
[2021-08-19] MEDS: SODIUM CHLORIDE 0.9% 1,000 ML 1000 ML IV ×2 (18:00→20:01)
[2021-08-19 18:23] LABS: Alanine Aminotransferase 25 IU/L (<35); Albumin 4.8 g/dL (3.5-5.0); Albumin Globulin Ratio 1.2 (1.0-2.8); Alkaline Phosphatase 51 U/L (38-126); Aspartate Aminotransferase 29 IU/L (14-36); BUN Creatinine Ratio 9.9 (6-22); Bilirubin Total 0.4 mg/dL (0.2-1.3); Blood Urea Nitrogen 9 mg/dL (7-17); Calcium 9.9 mg/dL (8.4-10.2); Carbon Dioxide 29 mmol/L (22-32); Chloride 102 mmol/L (98-107); Estimated Glomerular Filt Rate > 60.0 mL/min (>60); Globulin 3.9 g/dL (1.7-4.1); Glucose 94 mg/dL (70-100); HEMOLYSIS < 15 (0-50); Lactate (Lactic Acid) 0.7 mmol/L (0.7-2.1); Lipase 63 U/L (23-300); Sodium 137 mmol/L (137-145); Total Protein 8.7 g/dL (6.3-8.2)
--- NOTE | 2021-08-19 19:00 | ED.GENADULT ---
HPI - General Adult General Chief complaint: Fever Stated complaint: pelvic pain, flu symptoms, feverish Time Seen by Provider: 08/19/21 18:05 Source: patient Mode of arrival: Ambulatory History of Present Illness HPI narrative: Patient is a 21-year-old female. Was exposed to COVID on [place]. Is vaccinated. Over the past 24-36 hours has developed flu-like symptoms to include sore throat and feeling fever pagan generally not feeling very well. She took some Tylenol earlier in the day prior to arrival. Denies any urinary symptoms. No change in bowel habits. No chest pain. Also has now developed some pelvic discomfort. No vaginal bleeding. Related Data Previous Rx's Medication Instructions Recorded albuterol sulfate 90 mcg/actuation 2 puff INHALATION Q4-6H PRN #18 12/20/18 aerosol inhaler gram hydroxyzine pamoate 25 mg capsule 25 mg PO BID PRN #60 cap 11/26/20 bupropion HCl 150 mg tablet,12 hr 150 mg PO DAILY #90 each 04/29/21 sustained-release mupirocin 2 % topical ointment 1 applic TOPICAL BID #15 g 04/30/21 levonorgestrel-ethinyl estradiol 1 tab PO DAILY #84 tab 07/13/21 0.1 mg-20 mcg tablet Allergies Allergy/AdvReac Type Severity Reaction Status Date / Time amoxicillin Allergy Severe DRESS Verified 08/19/21 17:09 syndrome Penicillins Allergy Severe Rash Verified 08/19/21 17:09 Review of Systems Constitutional Constitutional: Reports as per HPI and Reports system reviewed and no additional complaints, except as documented ENT Ears, Nose, Mouth, and Throat: Reports system reviewed and no additional complaints, except as documented and Reports as per HPI Cardiovascular Cardiovascular: Reports as per HPI and Reports system reviewed and no additional complaints, except as documented Respiratory Respiratory: Reports system reviewed and no additional complaints, except as documented Gastrointestinal Gastrointestinal: Reports system reviewed and no additional complaints, except as documented Genitourinary Genitourinary: Reports system reviewed and no additional complaints, except as documented Integumentary/Breasts Skin/Breast: Reports system reviewed and no additional complaints, except as documented Neurologic Neurologic: Reports system reviewed and no additional complaints, except as documented Hematologic/Lymphatic On Anticoagulants: No Patient History Medical History Anxiety (2015) Depression (2015) DRESS syndrome (11/2018) Encounter for wellness examination in adult (03/19/21) Irritable bowel syndrome Menses painful (2017) Oral contraception initial prescription (02/2020) Social History household members: family Smoking Status: Never smoker alcohol intake: current Smoking Status: Never smoker alcohol intake frequency: holidays/special occasions only Substance Use Type: does not use Exam Initial Vital Signs Initial Vital Signs: Vital Signs Temperature 99.9 F H 08/19/21 17:08 Pulse Rate 140 H 08/19/21 17:08 Respiratory Rate 16 08/19/21 17:08 Blood Pressure 140/79 08/19/21 17:08 Pulse Oximetry 100 08/19/21 17:08 Const General: cooperative, healthy appearing and comfortable HENMT Head: normal to inspection and normocephalic Resp Effort & Inspection: normal respiratory effort Auscultation: clear to auscultation bilaterally Cardio Rate: tachycardic Rhythm: regular rhythm GI Inspection: normal to inspection Palpation: soft Other: Does have some lower abdominal pelvic tenderness Skin General: no rashes or lesions noted Neuro General: patient alert, patient awake, patient oriented x3 and moves all extremities Extrem General: normal to inspection and capillary refill normal Psych Appearance: grossly normal and well kempt Course Orders Ordered: ED Orders 08/19/21 18:42 Blood Culture Stat 08/19/21 19:23 Urine Microscopic Stat 08/19/21 19:50 US pelvic complete Stat Discontinued Medications Acetaminophen (Acetaminophen 325 Mg Tablet) 650 mg PO NOW ONE Stop: 08/19/21 19:50 Last Admin: 08/19/21 19:56 Dose: 650 mg Documented by: SHAY Sodium Chloride (Normal Saline 0.9%) 1,000 mls @ 1,000 mls/hr IV BOLUS ONE Stop: 08/19/21 18:13 Last Infusion: 08/19/21 19:08 Dose: 0 mls/hr Documented by: Admin: 08/19/21 18:00 Dose: 1,000 mls/hr Documented by: JOSE L Sodium Chloride (Normal Saline 0.9%) 1,000 mls @ 1,000 mls/hr IV BOLUS ONE Stop: 08/19/21 20:48 Last Infusion: 08/19/21 21:30 Dose: 1,000 mls/hr Documented by: Admin: 08/19/21 20:01 Dose: 1,000 mls/hr Documented by: SHAY Ketorolac Tromethamine (Ketorolac 30 Mg/Ml Vial) 30 mg IV NOW ONE Stop: 08/19/21 21:22 Last Admin: 08/19/21 21:30 Dose: 30 mg Documented by: LEOPOLDO Vital Signs Vital signs: Vital Signs - 8 hr 08/19/21 19:48 08/19/21 20:00 08/19/21 20:30 Temperature 99.2 F Pulse Rate 121 H 126 H Respiratory Rate 20 22 Blood Pressure 136/86 Pulse Oximetry 98 100 08/19/21 21:00 08/19/21 21:37 08/19/21 21:40 Temperature 98.1 F Pulse Rate 101 H 99 H Respiratory Rate 25 H 16 Blood Pressure 128/67 Pulse Oximetry 99 97 Medical Decision Making Lab Data Lab results reviewed: Yes I reviewed the patient's lab results. Result diagrams: 08/19/21 17:14 08/19/21 17:14 Labs: Lab Results 08/19/21 08/19/21 08/19/21 Range/Units 17:14 17:14 17:14 WBC 8.8 (4.5-11.0) X10^3/uL RBC 4.44 (4.0-5.2) X10^6/uL Hgb 13.3 (12.0-16.0) g/dL Hct 38.9 (36-46) % MCV 87.7 (80-100) fL MCH 29.9 (26-34) PG MCHC 34.1 (30-36) % RDW 12.8 (11.6-14.8) % Plt Count 288 (150-400) X10^3/uL Neut % (Auto) 79.9 H (50-75) % Lymph % (Auto) 8.7 L (25-40) % Daggett % (Auto) 11.1 (3-14) % Eos % (Auto) 0.1 L (2-4) % Baso % (Auto) 0.2 (0-2) % Neut # (Auto) 7100 H (8596-1261) /uL Lymph # (Auto) 800 L (9593-8844) /uL Daggett # (Auto) 1000 H (0-900) /uL Eos # (Auto) 0 (0-450) /uL Baso # (Auto) 0 (0-100) /uL Sodium 137 (137-145) mmol/L Potassium 4.0 (3.4-5.1) mmol/L Chloride 102 (98-107) mmol/L Carbon Dioxide 29 (22-32) mmol/L BUN 9 (7-17) mg/dL Creatinine 0.91 (0.52-1.04) mg/dL Estimated GFR > 60.0 (>60) mL/min BUN/Creatinine Ratio 9.9 (6-22) Glucose 94 (70-100) mg/dL Lactate 0.7 (0.7-2.1) mmol/L Calcium 9.9 (8.4-10.2) mg/dL Total Bilirubin 0.4 (0.2-1.3) mg/dL AST 29 (14-36) IU/L ALT 25 (<35) IU/L Alkaline Phosphatase 51 (38-126) U/L Total Protein 8.7 H (6.3-8.2) g/dL Albumin 4.8 (3.5-5.0) g/dL Globulin 3.9 (1.7-4.1) g/dL Albumin/Globulin Ratio 1.2 (1.0-2.8) Lipase 63 (23-300) U/L Procalcitonin 0.10 (<0.5) ng/mL Urine RBC (0-5/HPF) Urine WBC (0-5/HPF) Ur Squamous Epith Cells (0-5/HPF) Urine Bacteria (None) Ur Culture Indicated? SARS-CoV-2 (PCR) (Negative) 08/19/21 08/19/21 Range/Units 17:14 19:23 WBC (4.5-11.0) X10^3/uL RBC (4.0-5.2) X10^6/uL Hgb (12.0-16.0) g/dL Hct (36-46) % MCV (80-100) fL MCH (26-34) PG MCHC (30-36) % RDW (11.6-14.8) % Plt Count (150-400) X10^3/uL Neut % (Auto) (50-75) % Lymph % (Auto) (25-40) % Daggett % (Auto) (3-14) % Eos % (Auto) (2-4) % Baso % (Auto) (0-2) % Neut # (Auto) (6528-5156) /uL Lymph # (Auto) (4543-8989) /uL Daggett # (Auto) (0-900) /uL Eos # (Auto) (0-450) /uL Baso # (Auto) (0-100) /uL Sodium (137-145) mmol/L Potassium (3.4-5.1) mmol/L Chloride (98-107) mmol/L Carbon Dioxide (22-32) mmol/L BUN (7-17) mg/dL Creatinine (0.52-1.04) mg/dL Estimated GFR (>60) mL/min BUN/Creatinine Ratio (6-22) Glucose (70-100) mg/dL Lactate (0.7-2.1) mmol/L Calcium (8.4-10.2) mg/dL Total Bilirubin (0.2-1.3) mg/dL AST (14-36) IU/L ALT (<35) IU/L Alkaline Phosphatase (38-126) U/L Total Protein (6.3-8.2) g/dL Albumin (3.5-5.0) g/dL Globulin (1.7-4.1) g/dL Albumin/Globulin Ratio (1.0-2.8) Lipase (23-300) U/L Procalcitonin (<0.5) ng/mL Urine RBC 0-1/hpf D (0-5/HPF) Urine WBC 0-1/hpf (0-5/HPF) Ur Squamous Epith Cells 0-1 /hpf (0-5/HPF) Urine Bacteria None seen (None) Ur Culture Indicated? Cult not indicated SARS-CoV-2 (PCR) Positive H (Negative) Point of Care Testing Test Results Negative Urine Dip Bedside Urine Glucose Negative Bedside Urine Bilirubin - Negative Bedside Urine Ketone - Negative Urine Specific Alpine 1.015 Bedside Urine Occult Blood +/- Bedside Urine pH 6.0 Bedside Urine Protein - Negative Bedside Urine Urobilinogen - Negative Bedside Urine Nitrite - Negative Bedside Urine Leukocytes - Negative Esterase Point of care testing: Point of Care Testing Test Results Negative Urine Dip Bedside Urine Glucose Negative Bedside Urine Bilirubin - Negative Bedside Urine Ketone - Negative Urine Specific Alpine 1.015 Bedside Urine Occult Blood +/- Bedside Urine pH 6.0 Bedside Urine Protein - Negative Bedside Urine Urobilinogen - Negative Bedside Urine Nitrite - Negative Bedside Urine Leukocytes - Negative Esterase Imaging Data Chest x-ray: Radiologist's Impression: [address] [id number] XRay Report Signed Patient: Mary Quintero MR#: [id number] : 2000 Acct:[id number] Age/Sex: 21 / F Date of Service: 08/19/21 Loc: ED Accession Number: [id number] ?? Procedure: XR chest 1V Ordering Provider: Temitope Mcfarland MD PROCEDURE:? XR CHEST 1V ? INDICATIONS:? suspected sepsis COVID+ ? TECHNIQUE:? One view of the chest was acquired.? ? COMPARISON:? [facility], CR, XR CHEST 2V, 03/07/2020, 15:00. ? FINDINGS:? ? Surgical changes and devices:? None.? ? Lungs and pleura:? Lungs are clear.? No pleural effusions or pneumothorax.? ? Mediastinum:? Mediastinal contours appear normal.? Heart size is normal.? ? Bones and chest wall:? No suspicious bony lesions.? Overlying soft tissues appear unremarkable.? ? IMPRESSION:? No acute process. ? ? Dictated by: Munir Marshall M.D. on 08/19/2021 at 17:44 ? ? Approved by: Munir Marshall M.D. on 08/19/2021 at 17:44?? US - [employer] SUPERVISOR: Radiologist's Impression: [address] [id number] Ultrasound Report Signed Patient: Mary Quintero MR#: [id number] : 2000 Acct:[id number] Age/Sex: 21 / F Date of Service: 08/19/21 Loc: ED Accession Number: [id number] ?? Procedure: US pelvic complete Ordering Provider: David Suarez D.O. PROCEDURE:? US PELVIC COMPLETE ? INDICATIONS:? PAIN ? TECHNIQUE:? Real-time scanning was performed of the pelvic organs, with image documentation.? Additional endovaginal scanning was necessary due to incomplete visualization of the adnexal and endometrial structures by transabdominal scanning.? ? COMPARISON:? [facility], US, US PELVIC COMPLETE, 06/10/2020, 16:45. ? FINDINGS:? ?? Uterus:? Uterus is anteverted and normal in size at 7.7 x 3.5 x 5.1 cm. The myometrium is homogeneous. ? The endometrium measures 2. 8 mm combined thickness.? No focal masses ? Ovaries:? The right ovary measures 33 mm diameter, and the left ovary measures 22 mm diameter.? Dominant right follicular cyst measuring 16 mm. ? Other:? No pathologic free abdominal or pelvic fluid. ? ? IMPRESSION:? Negative evaluation.? No acute process. ? ? We strive to produce accurate, complete, and clear reports of imaging services. To assist us in improving patient care, this report was composed using standard report templates and voice recognition software. Therefore, it may contain abnormal punctuation, insertions and/or omissions. Occasional wrong-word or sound-alike substitutions may occur. Though we review the report and make efforts to correct it, we do recommend that the report be read carefully in proper context to recognize any text inaccuracies. ? ? Dictated by: Munir Marshall M.D. on 08/19/2021 at 20:47 ? ? Approved by: Munir Marshall M.D. on 08/19/2021 at 20:47?? MDM Narrative Medical decision making narrative: Patient's COVID test is positive which explains many of the symptoms that she presents with today. Was fairly tachycardic upon arrival. Received fluids which improved her heart rate somewhat however with the pelvic pain that she was having an ultrasound was ordered. No abnormal findings noted on the ultrasound. I feel that we can hold on further radiologic studies for now based on her exam. Of the positive COVID test. She was given return precautions and follow-up instructions. She expressed understanding and agreement. Discharge Plan Departure Patient Disposition: Home Clinical Impression: COVID-19, Pelvic pain Instructions: DI for COVID-19 (Suspected or Confirmed ) Activity Restrictions/Additional Instructions: You can take Tylenol for any fevers or body aches. Be sure to stay hydrated. Continue all of your medications as directed. Contact your primary doctor for follow-up. Return to the emergency department for any new or worsening symptoms. Prescriptions: No Action hydroxyzine pamoate 25 mg capsule 25 mg PO BID PRN (Reason: anxiety) Qty: 60 0RF Rx Instructions: may make drowsy, do not drive bupropion HCl 150 mg tablet sustained-release 12 hr 150 mg PO DAILY Qty: 90 2RF levonorgestrel-ethinyl estrad 0.1-20 mg-mcg tablet 1 tab PO DAILY Qty: 84 1RF albuterol sulfate 90 mcg/actuation HFA aerosol inhaler 2 puff INHALATION Q4-6H PRN (Reason: shortness of breath or wheezing) Qty: 18 3RF Rx Instructions: Dispense with spacer mupirocin 2 % ointment 1 applic topical BID Qty: 15 2RF Referrals: Dejah Luz ARNP [Primary Care Provider] -
--- NOTE | 2021-08-19 19:50 | DI.US.S_ITS ---
PROCEDURE: US PELVIC COMPLETE INDICATIONS: PAIN TECHNIQUE: Real-time scanning was performed of the pelvic organs, with image documentation. Additional endovaginal scanning was necessary due to incomplete visualization of the adnexal and endometrial structures by transabdominal scanning. COMPARISON: [facility], US, US PELVIC COMPLETE, 06/10/2020, 16:45. FINDINGS: Uterus: Uterus is anteverted and normal in size at 7.7 x 3.5 x 5.1 cm. The myometrium is homogeneous. The endometrium measures 2. 8 mm combined thickness. No focal masses Ovaries: The right ovary measures 33 mm diameter, and the left ovary measures 22 mm diameter. Dominant right follicular cyst measuring 16 mm. Other: No pathologic free abdominal or pelvic fluid. IMPRESSION: Negative evaluation. No acute process. We strive to produce accurate, complete, and clear reports of imaging services. To assist us in improving patient care, this report was composed using standard report templates and voice recognition software. Therefore, it may contain abnormal punctuation, insertions and/or omissions. Occasional wrong-word or sound-alike substitutions may occur. Though we review the report and make efforts to correct it, we do recommend that the report be read carefully in proper context to recognize any text inaccuracies. Dictated by: Munir Marshall M.D. on 08/19/2021 at 20:47 Approved by: Munir Marshall M.D. on 08/19/2021 at 20:47
[2021-08-19 19:52] LABS: Bacteria Urine None Seen; RBC Urine 0-1/HPF (0-5/HPF); Squamous Epithelial Cell Urine 0-1 /HPF (0-5/HPF); WBC Urine 0-1/HPF (0-5/HPF)
[2021-08-19 19:53] LABS: Culture Indicated Urine Cult Not Indicated
[2021-08-19] MEDS: ACETAMINOPHEN 325 MG TABLET 650 MG PO (19:56)
--- NOTE | 2021-08-19 20:33 | PC.NURSE ---
Exposed to COVID on [place]. Fever, nausea, headache, sore throat. Decrease PO intake. Patient reports LMP two weeks ago, diffuse lower pelvic pain, small amount of clear/white thick discharge. Denies foul odor. Lower pelvic pain radiates into back.
[2021-08-19] MEDS: KETOROLAC 30 MG/ML VIAL IV (21:30)
== END 2021-08-19 21:50 | disposition home or self-care (01) ==
PROVIDERS: Emergency Medicine; Emergency Provider Emergency Medicine; PCP Nurse Practitioner Family
DX: U07.1 COVID-19 (principal); R10.2 Pelvic and perineal pain; R00.0 Tachycardia, unspecified
CPT/HCPCS: 36415; 71045; 76830; 76856; 80053; 81003; 81015; 81025; 83605; 83690; 84145; 85025; 87040; 87635; 93005; 93010; 96361; 96374; 99284; 99285; C9803; J1885